=== PATIENT | male | born 1995 | race Caucasian/White ===

== ENCOUNTER 2021-06-30 12:20 | Emergency (ER) | payer BC ==
[~2021-06-30] VITALS: Ht 188 cm; Wt 107.0 kg
--- NOTE | 2021-06-30 13:00 | NUR ---
at bedside to examine pt.
[2021-06-30 13:41] LABS: MEAN CORPUSCULAR HEMOGLOBIN 29.5 uug (23.8-33.4); MEAN CORPUSCULAR VOLUME 86.4 fL (73.0-96.2); PLATELET COUNT (AUTO) 312 K/uL (152-348)
[2021-06-30 13:42] LABS: CARBON DIOXIDE 20 mmol/L (21-32); CHLORIDE 104 mmol/L (98-107); CREATININE 1.1 mg/dL (0.6-1.3); GLUCOSE 80 mg/dL (74-106); POTASSIUM 4.1 mmol/L (3.5-5.1); UREA NITROGEN, BLOOD 16 mg/dL (7-18)
[2021-06-30] MEDS: IV NORMAL SALINE 1000 ML BAG IV ONE (13:42)
[2021-06-30 13:47] LABS: ALANINE AMINOTRANSFERASE 25 U/L (16-63); ALKALINE PHOSPHATASE 104 U/L (50-136); ASPARTATE AMINOTRANSFERASE 13 U/L (15-37); BILIRUBIN,DIRECT 0.1 mg/dL (0.0-0.2); BILIRUBIN,TOTAL 0.6 mg/dL (0.2-1.0); TOTAL PROTEIN, SERUM 8.5 g/dL (6.4-8.2)
[2021-06-30 13:51] LABS: ETHANOL < 3 MG/DL (0-0)
[2021-06-30 13:52] LABS: ACETAMINOPHEN < 2.0 ug/mL (10-30)
--- NOTE | 2021-06-30 13:54 | NUR ---
Unable to obtain urine sample pt. tried.
--- NOTE | 2021-06-30 16:13 | NUR ---
[facility], and at this time She was informed that pt. medically clear to be dicharge. As stated pt. will be pickle sorter within 10 minutes by za.
--- NOTE | 2021-06-30 16:26 | NUR ---
dcd instructions given to pt. who verbalized understanding. pt. 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
--- NOTE | 2021-06-30 17:23 | NUR ---
Pt. insisted to go out and wait for [employer] as stated "will be here to pick me up in 5 min" pt. [id number] vitals stable.
== END 2021-06-30 17:24 | disposition other institution (70) ==
LOC: ER 12:20
DX: F13.129 Sedative, hypnotic or anxiolytic abuse with intoxication, unspecified (principal); F12.90 Cannabis use, unspecified, uncomplicated
CPT/HCPCS: 36415; 85025; A4663; G0480; J7030